=== PATIENT | male | born 1995 | race Caucasian/White ===

== ENCOUNTER 2017-02-13 18:28 | Emergency (ER) | payer OTHER ==
[~2017-02-13] VITALS: Ht 172.7 cm; Wt 62.6 kg
--- NOTE | ~2017-02-13 | CR210 ---
[facility]. [facility] A Service of [facility] & [facility] RADIOLOGY TEXT RESULTS PATIENT: CECELIA SOUZA LOCATION: SED : [birth year] UNIT #: [id number] AGE: [address]: Jemima Arshad SEX: M ORDER DR: [id number] [address] [address] [id number] E MR#: [id number] Acc #: [id number] NAME: CECELIA SOUZA : 1995 SEX: M STUDY DATE/TIME: 02/13/2017 19:49 UNIT: SED ROOM: STUDY DESCRIPTION: CR Ribs Uni 2 View W PA Ch Lt Attending Physician: Jemima Arshad Pa-C Ordering Physician: Physician Non-Staff Primary Care Physician: Primary Care Physician No MEDICAL IMAGING REPORT This report is preliminary unless electronic signature is present. EXAM Left ribs with PA chest HISTORY Complains of acute back pain, shortness of air, mid rib pain starting around noon today after roller coaster ride. FINDINGS PA view of the chest demonstrates no acute cardiopulmonary disease. Detailed views of the left ribs demonstrates no fracture or deformity. Soft tissues appear normal. IMPRESSION Normal PA chest, normal left ribs. Dictated by... Pablito Hernandez M.D. THIS IS AN ELECTRONICALLY VERIFIED REPORT Pablito Hernandez M.D. at 02/14/2017 5:38 PM Blake TD: 02/14/2017 08:38 JOB #: [id number] MEDICAL IMAGING REPORT Page 1 of 1
[~2017-02-13 18:28] MED LIST: BACITRACIN30 GM TOP
== END 2017-02-13 22:00 | disposition home or self-care (01) ==
LOC: SED 18:28
DX: S29.012A Strain of muscle and tendon of back wall of thorax, initial encounter (principal); Y93.I1 Activity, roller coaster riding; Z79.899 Other long term (current) drug therapy
CPT/HCPCS: 71100; 99283